=== PATIENT | female | born 1945 | race Caucasian/White ===

== ENCOUNTER 2017-03-03 16:58 | Emergency (ER) | payer MEDICARE, OTHER ==
[2017-03-03 17:14] VITALS: RESP 16; TEMP 98.9; BMI 23.3
[2017-03-03 18:49] LABS: BASO # 0.02 K/mm3 (0.0-2.0); BASO % 0.4 % (0.0-3.0); EOS # 0.1 (0.0-0.7); EOS % 1.6 % (1.5-5.0); GRAN # 2.25 (1.4-6.5); GRAN % 43.5 % (50.0-68.0); HEMOGLOBIN 12.3 gm/dL (12.0-16.0); LYMPH # 2.4 (1.2-3.4); LYMPH % 46.7 % (22.0-35.0); MEAN CELL VOLUME 76.9 fL (80.0-105.0); MEAN CORPUSCULAR HEMOGLOBIN 25.6 pg (25.0-35.0); MEAN CORPUSCULAR HGB CONC 33.3 g/dl (31.0-37.0); MEAN PLATELET VOLUME 10.9 fl (7.0-11.0); MONO # 0.4 (0.1-0.6); MONO % 7.8 % (1.0-6.0); PLATELET COUNT 243 10^3/uL (120.0-450.0); RED CELL DISTRIBUTION WIDTH 13.8 % (11.5-14.5); WHITE BLOOD COUNT 5.2 10^3/ul (4.5-11.0)
[2017-03-03 19:00] LABS: ALB/GLOB RATIO 1.2 (1.1-1.8); ALT/SGPT 27 U/L (7-56); AST/SGOT 22 U/L (15-39); BLOOD UREA NITROGEN 17 mg/dL (7-21); GFR AFRICAN-AMERICAN > 60; GFR NON-AFRICAN AMERICAN > 60
--- NOTE | 2017-03-03 19:17 | ED PDOC ---
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 Patient states she has pain and swelling at the MCP of the fifth finger. Patient denies any trauma or injury. Patient states she does use a walker for ambulation at home and occasionally will use a cane in the right hand. Patient states she takes Lyrica for pain. She denies chest pain or shortness of breath. Denies numbness weakness or tingling in the extremity. Patient denies any recent trauma or injury patient states that she is able to flex the fingers, but the pain is severe. denies cp or sob. denies forearm pain. pt states pain is only along the palm of the had at the 5th finger. taking lyrica for pain without improvement. (Nohemi Bledsoe) Past Medical History - Provider Review Nursing Documentation Reviewed: Yes - Travel History Have you recently traveled outside [place] w/in the past 3 mons?: No - Infectious Disease Hx of Infectious Diseases: None - Tetanus Immunization Tetanus Immunization: Unknown - Reproductive Menopause: Yes - Cardiac Hx Cardiac Disorders: Yes Hx Hypertension: Yes - Pulmonary Hx Respiratory Disorders: No - Neurological HX Cerebrovascular Accident: Yes (LEFT SIDED WEAKNESS 1996) - HEENT Hx HEENT Disorder: (WEARS RX GLASSES.LID LIFT) - Endocrine/Metabolic Hx Diabetes Mellitus Type 1: Yes - Hematological/Oncological Hx Blood Disorders: No - Musculoskeletal/Rheumatological Hx Arthritis: Yes - Psychiatric Hx Psychophysiologic Disorder: No Hx Anxiety: No Hx Bipolar Disorder: No Hx Depression: No Hx Emotional Abuse: No Hx Hallucinations: No Hx Panic Disorder: No Hx Post Traumatic Stress Disorder: No Hx Psychosis: No Hx Physical Abuse: No Hx Schizophrenia: No Hx Sexual Abuse: No Hx Substance Use: No - Surgical History Hx Appendectomy: Yes Hx Hysterectomy: Yes - Anesthesia Hx Anesthesia: Yes Hx Anesthesia Reactions: No Hx Malignant Hyperthermia: No - Suicidal Assessment Feels Threatened In Home Enviroment: No <Nohemi Bledsoe - Last Filed: 03/04/17 14:29> Family/Social History - Physician Review Nursing Documentation Reviewed: Yes Family/Social History: Unknown Family HX Smoking Status: Never Smoked Hx Alcohol Use: No Hx Substance Use: No Hx Substance Use Treatment: No <Nohemi Bledsoe - Last Filed: 03/04/17 14:29> Allergies/Home Meds <Rajat Soto - Last Filed: 03/03/17 20:18> <Nohemi Bledsoe - Last Filed: 03/04/17 14:29> Allergies/Adverse Reactions: Allergies No Known Allergies Allergy (Verified 03/03/17 17:14) Home Medications: Home Meds Medication Instructions Recorded Confirmed Clopidogrel [Plavix] 75 mg PO DAILY 12/11/11 04/29/16 Metformin HCl [Glucophage Xr] 1,000 mg PO BID 04/01/16 04/29/16 Alendronate Sodium [Binosto] 70 mg PO QWK 04/28/16 04/28/16 Atorvastatin Calcium 10 mg PO DAILY 04/28/16 04/29/16 Insulin Detemir [Levemir] 40 unit SC DAILY 04/28/16 04/28/16 Linagliptin [Tradjenta] 5 mg PO DAILY 04/28/16 04/28/16 Lisinopril [Zestril] 2.5 mg PO DAILY 04/28/16 04/28/16 Pregabalin [Lyrica] 75 mg PO BID 04/28/16 04/29/16 Review of Systems - Review of Systems Constitutional: absent: Fatigue, Fevers Respiratory: absent: SOB, Cough Cardiovascular: absent: Chest Pain, Palpitations Gastrointestinal: absent: Abdominal Pain, Diarrhea, Nausea, Vomiting Musculoskeletal: Arthralgias. absent: Back Pain, Neck Pain Skin: absent: Rash, Pruritis Neurological: absent: Headache, Dizziness Psychiatric: absent: Anxiety, Depression <Nohemi Bledsoe - Last Filed: 03/04/17 14:29> Physical Exam Vital Signs Reviewed: Yes Temperature: Afebrile Blood Pressure: Hypertensive Pulse: Regular Respiratory Rate: Normal Appearance: Positive for: Well-Appearing, Non-Toxic, Comfortable Pain Distress: None Mental Status: Positive for: Alert and Oriented X 3 - Systems Exam Head: Present: Atraumatic Mouth: Present: Moist Mucous Membranes Neck: Present: Normal Range of Motion Respiratory/Chest: Present: Clear to Auscultation, Good Air Exchange. No: Respiratory Distress, Accessory Muscle Use Cardiovascular: Present: Regular Rate and Rhythm Abdomen: No: Tenderness Upper Extremity: Present: Normal ROM, NORMAL PULSES, Tenderness (right hand; + minimal swelling along palmar aspect of hand over the 5th MCP; minimal edema, full rom of hand, finger with pain. no warmth. no erythema. ), Swelling, Neurovascularly Intact, Capillary Refill < 2s. No: Erythema, Deformity Neurological: Present: GCS=15 Skin: Present: Warm, Dry, Normal Color. No: Rashes Psychiatric: Present: Alert, Oriented x 3 <Nohemi Bledsoe T - Last Filed: 03/04/17 14:29> Vital Signs Temp Pulse Resp BP Pulse Ox 03/03/17 21:35 53 L 16 169/80 H 96 03/03/17 21:17 181/83 H 03/03/17 21:06 181/83 H 03/03/17 19:52 55 L 16 186/80 H 97 03/03/17 17:11 98.9 F 58 L 16 198/81 H 97 Medical Decision Making <Rajat Soto - Last Filed: 03/03/17 20:18> <Nohemi Bledsoe - Last Filed: 03/04/17 14:29> ED Course and Treatment: 03/03/17 19:29 71-year-old diabetic female with right hand pain 4 days Tramadol by mouth CBC within normal limits CMP glucose 401 Normal saline 500 mL given IV Regular insulin 6 units subcutaneous given X-rays of the right hand: No fracture or foreign body Patient reassessment: Patient nontoxic well-appearing no distress. I discussed the results and depth of the patient and patients son. I advised follow-up with the primary care physician within the next 2 days. Pt advised immediate return if symptoms worsen or persist or if new concerning symptoms develop. advised patient take antibiotics as prescribed. pt was advised to f/u with email specialist/ pmd regarding elevated bP. fingerstick;199 norvasc 2.5mg po given. although there is minimal erythema, and minimal swelling; i will cover the patient with keflex for possibility of developing cellulitis. stressed IMMEDIATE return if symptoms worsen. switching clerk aware reviewed; no record of narcotic use for this patient. Patient verbalizes understanding of discharge instructions and need for immediate followup. Patient was seen and evaluated by Dr. Soto. impression; hand pain, hyperglycemia, hypertension Keflex 1 capsule 4 times daily 7 days Tramdol; 1 tablet every 6 hours as needed for moderate to severe pain follow up with the primary care physician within the next 2 days. follow up with orthopedist within the next 2 days. return immediately if signs of infection develop; High fevers, increasing pain, redness, swelling or if any other concerning symptoms develop. (Nohemi Bledsoe) - Lab Interpretations Lab Results: 03/03/17 18:20 03/03/17 18:20 Lab Results 03/03/17 18:20: WBC 5.2 D, RBC 4.80, Hgb 12.3, Hct 36.9, MCV 76.9 L, MCH 25.6, MCHC 33.3, RDW 13.8, Plt Count 243, MPV 10.9, Gran % 43.5 L, Lymph % (Auto) 46.7 H, Atkinson % (Auto) 7.8 H, Eos % (Auto) 1.6, Baso % (Auto) 0.4, Gran # 2.25, Lymph # 2.4, Atkinson # 0.4, Eos # 0.1, Baso # 0.02 03/03/17 18:20: Sodium 135, Potassium 4.5, Chloride 97 L, Carbon Dioxide 28, Anion Gap 15, BUN 17, Creatinine 0.7, Est GFR ( Amer) > 60, Est GFR (Non- Af Amer) > 60, Random Glucose 401 H* D, Calcium 9.0, Total Bilirubin 0.5, AST 22 , ALT 27, Alkaline Phosphatase 124, Total Protein 7.4, Albumin 4.0, Globulin 3.4 , Albumin/Globulin Ratio 1.2 - RAD Interpretation Radiology Orders: 03/03/17 17:55 HAND RIGHT 3 VIEWS [RAD] Stat - Medication Orders Current Medication Orders: Discontinued Medications Amlodipine Besylate (Norvasc) 2.5 mg PO STAT STA Stop: 03/03/17 21:09 Last Admin: 03/03/17 21:17 Dose: 2.5 mg Cephalexin Monohydrate (Keflex) 500 mg PO STAT STA PRN Reason: Protocol Stop: 03/03/17 21:09 Last Admin: 03/03/17 21:17 Dose: 500 mg Sodium Chloride (Sodium Chloride 0.9%) 500 mls @ 999 mls/hr IV .Q31M STA Stop: 03/03/17 19:49 Last Admin: 03/03/17 19:24 Dose: 999 mls/hr Insulin Human Regular (Humulin R) 6 units SC STAT STA Stop: 03/03/17 19:20 Last Admin: 03/03/17 19:29 Dose: 6 units Tramadol HCl (Ultram) 25 mg PO STAT STA Stop: 03/03/17 18:53 Last Admin: 03/03/17 19:30 Dose: 25 mg - PA / [employer]ER [employer]ER / Resident Statement / has reviewed & agrees with the documentation as recorded. / has examined the patient and agrees with the treatment plan. <Rajat Soto - Last Filed: 03/03/17 20:18> Disposition/Present on Arrival <Rajat Stoo - Last Filed: 03/03/17 20:18> - Present on Arrival Any Indicators Present on Arrival: No History of DVT/PE: No History of Uncontrolled Diabetes: No Urinary Catheter: No History of Decub. Ulcer: No History Surgical Site Infection Following: None - Disposition Have Diagnosis and Disposition been Completed?: Yes Disposition Time: 21:16 Patient Plan: Discharge <Nohemi Bledsoe - Last Filed: 03/04/17 14:29> - Disposition Diagnosis: Hypertension, Right hand pain, Hyperglycemia Disposition: HOME/ ROUTINE Condition: GOOD Discharge Instructions (ExitCare): Cellulitis (ED), Hypertension (ED), Arthralgia (ED), Diabetic Hyperglycemia (ED) Additional Instructions: Keflex 1 capsule 4 times daily 7 days Tramdol; 1 tablet every 6 hours as needed for moderate to severe pain follow up with the primary care physician within the next 2 days. follow up with orthopedist within the next 2 days. return immediately if signs of infection develop; High fevers, increasing pain, redness, swelling or if any other concerning symptoms develop. Prescriptions: Cephalexin [Keflex] 500 mg PO QID #28 capsule traMADol [Ultram] 50 mg PO Q6H #6 tab Referrals: Darnell Mathis [Primary Care Provider] - Follow up with primary Mati Abarca MD [Staff Provider] - Follow up with primary Bishop Kern MD [Staff Provider] - Follow up with primary Reji Beckman MD [Staff Provider] - Follow up with primary Francois Rios MD [Staff Provider] - Follow up with primary Forms: [employer] (Kiswahili)
[2017-03-03] MEDS ORDERED: Insulin Regular 1 UNITS/0.01 ML ML SC STA (19:19)
[2017-03-03] MEDS ORDERED: Sodium Chloride 0.9% 500 ML IV STA (19:19)
[2017-03-03 22:55] VITALS: BP 169/80; PULSE 53; O2SAT 96
--- NOTE | 2017-03-04 11:40 | RAD ---
PROCEDURE: Right Hand Radiographs. HISTORY: right hand pain/swelling greatest over 5th mcp COMPARISON: None. FINDINGS: BONES: No acute fracture is seen or dislocation. Joint space narrowing throughout the interphalangeal suggest osteoarthritis including at the thumb as well as of the 1st metacarpophalangeal joint. Diffuse osteopenia suggests osteoporosis. JOINTS: Degenerative joint changes throughout the phalanges as discussed above. SOFT TISSUES: Normal. OTHER FINDINGS: None. IMPRESSION: No acute fracture or dislocation. Degenerative joint changes seen as well as osteopenia which suggests osteoporosis.
== END 2017-03-03 21:40 | disposition home or self-care (01) ==
LOC: ED 16:58
DX: I10 Essential (primary) hypertension (principal); E11.65 Type 2 diabetes mellitus with hyperglycemia; M79.641 Pain in right hand; Z86.73 Personal history of transient ischemic attack (TIA), and cerebral infarction without residual deficits
CPT/HCPCS: 73130; 80053; 85025; 87040; 96372; 99284; J7040

== ENCOUNTER 2017-07-25 10:25 | Emergency (ER) | payer MEDICARE, OTHER ==
[2017-07-25 10:26] VITALS: BMI 23.3
== END 2017-07-25 10:46 | disposition left against medical advice (07) ==
LOC: ED 10:25
DX: Z02.89 Encounter for other administrative examinations (principal); M25.512 Pain in left shoulder

== ENCOUNTER 2017-07-28 07:13 | Observation (INO) | payer MEDICARE, OTHER ==
[2017-07-28] MEDS ORDERED: Morphine 4 mg/ml ISec IVP STA (07:41)
[2017-07-28] MEDS: Sodium Chloride 0.9% 1,000 ML IV SCH ×4 (07:55→20:23)
[2017-07-28 07:56] LABS: BASO # 0.02 K/mm3 (0.0-2.0); BASO % 0.3 % (0.0-3.0); EOS % 0.6 % (1.5-5.0); GRAN # 3.48 (1.4-6.5); GRAN % 56.4 % (50.0-68.0); LYMPH # 2.2 (1.2-3.4); LYMPH % 34.8 % (22.0-35.0); MEAN CELL VOLUME 79.3 fl (80.0-105.0); MEAN CORPUSCULAR HEMOGLOBIN 25.4 pg (25.0-35.0); MEAN CORPUSCULAR HGB CONC 32.1 g/dl (31.0-37.0); MEAN PLATELET VOLUME 11.6 fl (7.0-11.0); MONO # 0.5 (0.1-0.6); MONO % 7.9 % (1.0-6.0); RED CELL DISTRIBUTION WIDTH 13.2 % (11.5-14.5); WHITE BLOOD COUNT 6.2 10^3/ul (4.5-11.0)
--- NOTE | 2017-07-28 08:02 | ED PDOC ---
Arrival/HPI - General Chief Complaint: Chest Pain Time Seen by Provider: 07/28/17 07:41 Historian: Patient EM Caveat: Language Barrier (pt speaks montserratian, son is translating) - History of Present Illness Narrative History of Present Illness (Text): 07/28/17 07:30 Kasey Wellington is a 72 year old female who presents to the emergency department complaining of ~ 1 week duration of near constant left shoulder pain that radiates down her left arm. Patient notes that she experiences some associated dizziness and chest discomfort, prompting her to come to the emergency department because she was unable to tolerate the pain. Patient confirms that she has never experienced this pain before and rates her pain as a 7/10. Patient states that she [facility] the [facility] a few days (4) ago but left because she was waiting too long for the doctor. Patient then says she went to [facility] ED and was told/diagnosed she has muscle pain. Patient reportedly states that she has also been seen at a satellite clinic where she was discharged for shoulder pain. 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 Patient denies any fever, chills, sweats, shortness of breath, palpitations, abdominal pain, nausea, vomiting, urinary symptoms, numbness, tingling, or any other complaint at this time. pt is here for further eval pt denied fall/trauma/sick contact, no travel PMD: Dr. Mathis 07/28/17 08:59 Time/Duration: < week Symptom Onset: Gradual Symptom Course: Unchanged Severity Level: 7, Moderate Activities at Onset: Light Context: Home Past Medical History - Provider Review Nursing Documentation Reviewed: Yes - Travel History Have you recently traveled outside [place] w/in the past 3 mons?: No - Infectious Disease Hx of Infectious Diseases: None - Tetanus Immunization Tetanus Immunization: Unknown - Reproductive Menopause: Yes - Cardiac Hx Cardiac Disorders: Yes Hx Hypertension: Yes - Pulmonary Hx Respiratory Disorders: No - Neurological HX Cerebrovascular Accident: Yes (LEFT SIDED WEAKNESS 1996) - HEENT Hx HEENT Disorder: (WEARS RX GLASSES.LID LIFT) - Endocrine/Metabolic Hx Diabetes Mellitus Type 1: Yes - Hematological/Oncological Hx Blood Disorders: No - Musculoskeletal/Rheumatological Hx Arthritis: Yes - Psychiatric Hx Psychophysiologic Disorder: No Hx Anxiety: No Hx Bipolar Disorder: No Hx Depression: No Hx Emotional Abuse: No Hx Hallucinations: No Hx Panic Disorder: No Hx Post Traumatic Stress Disorder: No Hx Psychosis: No Hx Physical Abuse: No Hx Schizophrenia: No Hx Sexual Abuse: No Hx Substance Use: No - Surgical History Hx Appendectomy: Yes Hx Hysterectomy: Yes - Anesthesia Hx Anesthesia: Yes Hx Anesthesia Reactions: No Hx Malignant Hyperthermia: No - Suicidal Assessment Feels Threatened In Home Enviroment: No Family/Social History - Physician Review Nursing Documentation Reviewed: Yes Family/Social History: No Known Family HX Smoking Status: Never Smoked Hx Alcohol Use: No Hx Substance Use: No Hx Substance Use Treatment: No Allergies/Home Meds Allergies/Adverse Reactions: Allergies No Known Allergies Allergy (Verified 07/28/17 07:19) Home Medications: Home Meds Medication Instructions Recorded Confirmed Clopidogrel [Plavix] 75 mg PO DAILY 12/11/11 07/28/17 Metformin HCl [Glucophage Xr] 1,000 mg PO BID 04/01/16 07/28/17 Alendronate Sodium [Binosto] 70 mg PO QWK 04/28/16 07/28/17 Atorvastatin Calcium 10 mg PO DAILY 04/28/16 07/28/17 Insulin Detemir [Levemir] 40 unit SC DAILY 04/28/16 07/28/17 Linagliptin [Tradjenta] 5 mg PO DAILY 04/28/16 07/28/17 Lisinopril [Zestril] 2.5 mg PO DAILY 04/28/16 07/28/17 Pregabalin [Lyrica] 75 mg PO BID 04/28/16 07/28/17 Review of Systems - Physician Review All systems were reviewed & negative as marked: Yes - Review of Systems Constitutional: absent: Fevers, Night Sweats Eyes: absent: Vision Changes ENT: absent: Hearing Changes Respiratory: absent: SOB, Cough Cardiovascular: Chest Pain (some chest discomfort) Gastrointestinal: absent: Abdominal Pain Genitourinary Female: absent: Dysuria, Frequency Musculoskeletal: Other (left shoulder pain that radiates down arm). absent: Back Pain, Neck Pain Skin: absent: Rash, Pruritis Neurological: absent: Headache, Dizziness Endocrine: absent: Diaphoresis Hemo/Lymphatic: absent: Adenopathy Psychiatric: absent: Anxiety, Depression Physical Exam Vital Signs Reviewed: Yes Vital Signs Temp Pulse Resp BP Pulse Ox 07/28/17 09:14 74 18 157/74 H 98 12/23/17 07:28 98.2 F 62 18 182/90 H 98 07/28/17 07:17 62 20 182/90 H 97 Temperature: Afebrile Blood Pressure: Other (elevated BP) Pulse: Regular Respiratory Rate: Normal Appearance: Positive for: Well-Appearing, Non-Toxic, Other (uncomfortable, resting in bed, alert/awake, cooperative, + mild distress due to pain to left side during exam) Pain Distress: Mild Mental Status: Positive for: Alert and Oriented X 3 Finger Stick Blood Glucose: 403 - Systems Exam Head: Present: Atraumatic, Normocephalic Pupils: Present: PERRL, Other (visual field intact b/l, no photophobia) Extroacular Muscles: Present: EOMI Conjunctiva: Present: Normal Ears: Present: Normal Mouth: Present: Moist Mucous Membranes, Other (uvula/tongue are midline, no exudate/lesions, no drooling/stridor; intact dentitions) Pharnyx: Present: Normal. No: ERYTHEMA, EXUDATE Neck: Present: Normal Range of Motion, Trachea Midline. No: MIDLINE TENDERNESS Respiratory/Chest: Present: Clear to Auscultation, Good Air Exchange. No: Respiratory Distress, Accessory Muscle Use Cardiovascular: Present: Regular Rate and Rhythm, Normal S1, S2. No: Murmurs Abdomen: Present: Normal Bowel Sounds, Other (well nourished female, no focal tenderness, no masses/rebound/guarding/rigidity, no kirby's sign, no mcburney' s point tenderness). No: Tenderness, Distention, Peritoneal Signs Back: Present: Normal Inspection. No: Midline Tenderness Upper Extremity: Present: Normal Inspection, Normal ROM, NORMAL PULSES, Other ( + reproducible left mid/upper shoulder/trapezius region tenderness, no gross deformities noted, neurovasc intact b/l). No: Cyanosis, Edema Lower Extremity: Present: Normal Inspection, NORMAL PULSES, Normal ROM, Capillary Refill < 2 s. No: Edema, Kahlil's Sign Neurological: Present: GCS=15, CN II-XII Intact, Speech Normal Skin: Present: Warm, Dry, Normal Color, Other (cap refill < 1 sec, no ulcerations, no petechiae, no rashes, no lesions noted). No: Rashes Psychiatric: Present: Alert, Oriented x 3, Normal Insight, Normal Concentration Medical Decision Making ED Course and Treatment: 07/28/17 07:30 Impression: 72 year old female complaining of left shoulder pain that radiates down arm with associated dizziness and some chest discomfort for about one week. Differential Diagnosis included but are not limited to: Chest Pain r/o ACS vs. musculoskeletal pathology. Unlikely to be pancreatitis, PE, or pneumonia. Will continue to monitor. Plan: -- Chest X-ray -- Urinalysis -- Labs -- Morphine, Aspirin, and IV fluids -- Reassess and disposition Prior Visits: Notes and results from previous visits were reviewed. Patient was last seen in the emergency department on 07/25/17 for left shoulder pain, but patient eloped before being seen. Progress Notes: 07/28/17 08:40 Dr. Wilson made aware of patient's emergent complaints, diagnostic finds and Emergency department managment. Is agreeable with emergency department admission /observation placement. Would like patient to be placed in full telemetry and to put in consult for Dr. Man. 07/28/17 09:04 pt states her pain is slightly improved to left shoulder pt denied chest pain currently pt/family are made aware of pt's medical results agrees with admission/observation Re-evaluation Time: 09:00 Reassessment Condition: Improved - Lab Interpretations Lab Results: 07/28/17 07:20 07/28/17 07:20 Lab Results 07/28/17 07:20: Lipase 43 07/28/17 07:20: Sodium 135, Potassium 4.4, Chloride 96 L, Carbon Dioxide 28, Anion Gap 15, BUN 14, Creatinine 0.6 L, Est GFR ( Amer) > 60, Est GFR ( Non-Af Amer) > 60, Random Glucose 417 H*, Calcium 9.4, Magnesium 1.9, Total Bilirubin 0.7, AST 20, ALT 24, Alkaline Phosphatase 145 H, Lactate Dehydrogenase 571, Total Creatine Kinase 132, Troponin I < 0.01, Total Protein 8.1, Albumin 4.3, Globulin 3.8, Albumin/Globulin Ratio 1.1 07/28/17 07:20: WBC 6.2, RBC 4.92, Hgb 12.5, Hct 39.0, MCV 79.3 L, MCH 25.4, MCHC 32.1, RDW 13.2, Plt Count 281, MPV 11.6 H, Gran % 56.4, Lymph % (Auto) 34.8 , [place] % (Auto) 7.9 H, Eos % (Auto) 0.6 L, Baso % (Auto) 0.3, Gran # 3.48, Lymph # 2.2, [place] # 0.5, Eos # 0.0, Baso # 0.02 I have reviewed the lab results: Yes (elevated FS) Interpretation: Abnormal lab values - RAD Interpretation Narrative RAD Interpretations (Text): 07/28/17 11:52 atelectasis, otherwise no large effusion, no masses; mild cardiomeagly, as read by me Radiology Orders: 07/28/17 07:41 CHEST TWO VIEWS (PA/LAT) [RAD] Stat Membership Solicitor: ED Physician - EKG Interpretation EKG Interpretation (Text): 07/28/17 09:06 NSR at 65 bpm, normal axis, no ectopy, inverted T in leads III, V1-2, no st changes, BORDERLINE EKG; unchanged compare with old ekg 11/201607/28/17 11:54 Interpreted by ED Physician: Yes Type: 12 lead EKG Comparison: Similar to previous EKG - Medication Orders Current Medication Orders: Amlodipine Besylate (Norvasc) 2.5 mg PO DAILY [facility] Last Admin: 07/28/17 10:52 Dose: 2.5 mg [facility] Blood Pressure Document 07/28/17 10:52 KMS (Rec: 07/28/17 10:52 KMS [place] [id number]) Blood Pressure Blood Pressure (100/60-150/90) 133/65 Atenolol (Tenormin) 25 mg PO DAILY [facility] Last Admin: 07/28/17 10:51 Dose: 25 mg MAR Pulse and Blood Pressure Document 07/28/17 10:51 KMS (Rec: 07/28/17 10:52 KMS [place] [id number]) Pulse Pulse Rate (60-90) 61 Blood Pressure Blood Pressure (100/60-150/90) 133/65 Atorvastatin Calcium (Lipitor) 10 mg PO HS [facility] Clopidogrel Bisulfate (Plavix) 75 mg PO DAILY [facility] Last Admin: 07/28/17 10:51 Dose: 75 mg Famotidine (Pepcid) 20 mg PO BID [facility] Sodium Chloride (Sodium Chloride 0.9%) 1,000 mls @ 100 mls/hr IV .Q10H [place] Last Admin: 07/28/17 10:58 Dose: 100 mls/hr Comments: israel atkinson ba eMAR Start Stop Document 07/28/17 10:58 KMS (Rec: 07/28/17 10:59 KMS [place] [id number]) Intravenous Solution Start Date 07/28/17 Start Time 10:59 Ibuprofen (Motrin Tab) 400 mg PO Q6H PRN PRN Reason: Pain, moderate (4-7) Insulin Detemir (Levemir) 40 unit SC HS [place] Insulin Human Regular (Humulin R Med) 0 units SC ACHS [place] PRN Reason: Protocol Last Admin: 07/28/17 11:16 Dose: 3 units MAR Blood Glucose Document 07/28/17 11:16 KMS (Rec: 07/28/17 11:16 KMS [place] [id number]) Blood Glucose Finger Stick Blood Glucose (70-120) 226 Subcutaneous Administrations Document 07/28/17 11:16 KMS (Rec: 07/28/17 11:16 KMS [place] [id number]) Injection Site MAR Injection Site Right Arm Charges for Administration # of Subcutaneous Administrations 1 Lisinopril (Zestril) 2.5 mg PO DAILY [place] Pregabalin (Lyrica) 75 mg PO BID [place] Tramadol HCl (Ultram) 50 mg PO Q6H PRN PRN Reason: Pain, severe (8-10) Discontinued Medications Aspirin (Aspirin) 325 mg PO STAT STA Stop: 07/28/17 07:42 Last Admin: 07/28/17 07:55 Dose: 325 mg Sodium Chloride (Sodium Chloride 0.9%) 1,000 mls @ 999 mls/hr IV .Q1H1M STA Stop: 07/28/17 09:32 Last Admin: 07/28/17 09:15 Dose: 999 mls/hr eMAR Start Stop Document 07/28/17 09:15 EWO (Rec: 07/28/17 09:16 [id number] Intravenous Solution Start Date 07/28/17 Start Time 09:15 End Date 07/28/17 End time 10:15 Total Infusion Time 60 Insulin Detemir (Levemir) 40 unit SC DAILY [facility] Insulin Human Regular (Humulin R) 6 units SC ONCE ONE Stop: 07/28/17 08:33 Last Admin: 07/28/17 09:13 Dose: 6 units MAR Blood Glucose Document 07/28/17 09:13 EWO (Rec: 07/28/17 09:14 EWO [id number] Blood Glucose Finger Stick Blood Glucose (70-120) 403 Subcutaneous Administrations Document 07/28/17 09:13 EWO (Rec: 07/28/17 09:14 EWO [id number][place] Injection Site MAR Injection Site Left Arm Charges for Administration # of Subcutaneous Administrations 1 Morphine Sulfate (Morphine) 4 mg IVP STAT STA Stop: 07/28/17 07:42 Last Admin: 07/28/17 07:55 Dose: 4 mg MAR Pain Assessment Document 07/28/17 07:55 EWO (Rec: 07/28/17 07:56 [id number] Pain Reassessment Is this a pain reassessment? No Sleep Is patient sleeping during reassessment? No Presence of Pain Presence of Pain Yes Pain Scale Used Pain Scale Used Numeric Location Left, Right or Bilateral Left Pain Location Body Site Neck Shoulder Description Description Constant Intensity of Pain at present 7 IVP Administration Document 07/28/17 07:55 EWO (Rec: 07/28/17 07:56 [facility]-[id number]) Charges for Administration # of IVP Administrations 1 Re-Assess: DORIS Pain Assessment Document 07/28/17 08:55 KMS (Rec: 07/28/17 11:18 KMS [id number]) Pain Reassessment Is this a pain reassessment? Yes Presence of Pain Presence of Pain No Nitroglycerin (Nitro-Bid 2% Oint) 0.5 ea TOP STAT STA Stop: 07/28/17 08:41 Last Admin: 07/28/17 09:14 Dose: 0.5 ea - Scribe Statement The provider has reviewed the documentation as recorded by the Ramesh Hope Provider Scribe Attestation: All medical record entries made by the Scribe were at my direction and personally dictated by me. I have reviewed the chart and agree that the record accurately reflects my personal performance of the history, physical exam, medical decision making, and the department course for this patient. I have also personally directed, reviewed, and agree with the discharge instructions and disposition. Disposition/Present on Arrival - Present on Arrival Any Indicators Present on Arrival: No History of DVT/PE: No History of Uncontrolled Diabetes: No Urinary Catheter: No History of Decub. Ulcer: No History Surgical Site Infection Following: None - Disposition Have Diagnosis and Disposition been Completed?: Yes Diagnosis: Chest pain, Acute hyperglycemia, Shoulder pain, left Disposition: HOSPITALIZED Disposition Time: 09:15 Patient Plan: Admission, Observation Condition: STABLE
[2017-07-28 08:23] LABS: ALB/GLOB RATIO 1.1 (1.1-1.8); ALKALINE PHOSPHATASE 145 U/L (38-126); ALT/SGPT 24 U/L (7-56); AST/SGOT 20 U/L (14-36); BILIRUBIN,TOTAL 0.7 mg/dL (0.2-1.3); BLOOD UREA NITROGEN 14 mg/dL (7-21); CALCIUM 9.4 mg/dL (8.4-10.5); CARBON DIOXIDE 28 mmol/L (21-33); CHLORIDE 96 mmol/L (98-107); GFR AFRICAN-AMERICAN > 60; GLUCOSE,RANDOM 417 mg/dL (70-110); MAGNESIUM 1.9 mg/dL (1.7-2.2); POTASSIUM 4.4 mmol/L (3.6-5.0); SODIUM 135 mmol/L (132-148); TOTAL PROTEIN 8.1 g/dL (5.8-8.3); TROPONIN I < 0.01 ng/mL
[2017-07-28] MEDS ORDERED: Insulin Regular 1 UNITS/0.01 ML ML SC ONE (08:32)
[2017-07-28] MEDS ORDERED: Sodium Chloride 0.9% 1,000 ML IV STA (08:32)
[2017-07-28] MEDS ORDERED: Nitroglycerin 2% Ointment Foilpak UD TOP STA (08:40)
[2017-07-28 09:30] LABS: VENOUS BLOOD GAS BASE EXCESS 2.6 mmol/L (0.0-2.0); VENOUS BLOOD PH 7.34 (7.32-7.43)
--- NOTE | 2017-07-28 09:57 | CP.PCM.HP ---
<Raquel Acevedo - Last Filed: 07/28/17 16:49> History of Present Illness - History of Present Illness History of Present Illness: PGY-2 h&p for hospitalist service 72 yo female with PMH of diabetes, HTN, cva with left sided weakness presents with left shoulder pain. Patient states that it started about 1 week ago and is located in her left neck and shoulder and radiated done her arm and occasionally to the upper left chest and back. She denies previous episode or trauma. She states that the pain is worse with movement. A few days prior she went to another ER and was diagnosed with muscle pain and given tramadol. However she did not take the medication. She also reports a recent episode of dizziness, stating that when she stood up she felt the room closing in on her. She states it lasted a few minutes and resolved, denies loss of consciousness. She also reports diabetic neuropathy in her feet. Patient states that sugars have not been controlled, and have been in the 300s. She denies fever, chills, abd pain, n/v, dysuria. PMH: HTN, Diabetes, diabetic neuropathy, CVA 1996, TIA 2013 Psh: appendectomy, cholecystectomy, hysterectomy allergy: NKDA social history: denies smoking, alcohol use and illicit dugs family history: unknown cancer Present on Admission - Present on Admission Any Indicators Present on Admission: Yes History of Uncontrolled Diabetes: Yes Review of Systems - Constitutional Constitutional: Weakness (h/o left sided due to cvs). absent: Chills, Fever, Headache - EENT Eyes: absent: Change in Vision Nose/Mouth/Throat: absent: Nasal Congestion, Sore Throat - Cardiovascular Cardiovascular: Chest Pain. absent: Diaphoresis, Dyspnea, Palpitations - Respiratory Respiratory: absent: Cough, Dyspnea - Gastrointestinal Gastrointestinal: absent: Abdominal Pain, Constipation, Cramping, Diarrhea, Nausea, Vomiting - Genitourinary Genitourinary: absent: Difficulty Urinating, Dysuria, Flank Pain - Musculoskeletal Musculoskeletal: Arthralgias, Numbness, Tingling - Integumentary Integumentary: absent: Pruritus, Rash, Skin Ulcer, Sores, Striae, Wounds - Hematologic/Lymphatic Hematologic: absent: Easy Bleeding, Easy Bruising Past Patient History - Infectious Disease Hx of Infectious Diseases: None - Tetanus Immunizations Tetanus Immunization: Unknown - Past Social History Smoking Status: Never Smoked - CARDIAC Hx Cardiac Disorders: Yes Hx Hypertension: Yes - PULMONARY Hx Respiratory Disorders: No - NEUROLOGICAL HX Cerebrovascular Accident: Yes (LEFT SIDED WEAKNESS 1996) - HEENT Hx HEENT Problems: (WEARS RX GLASSES.LID LIFT) - ENDOCRINE/METABOLIC Hx Diabetes Mellitus Type 1: Yes - HEMATOLOGICAL/ONCOLOGICAL Hx Blood Disorders: No - MUSCULOSKELETAL/RHEUMATOLOGICAL Hx Arthritis: Yes - PSYCHIATRIC Hx Psychophysiologic Disorder: No Hx Anxiety: No Hx Bipolar Disorder: No Hx Depression: No Hx Emotional Abuse: No Hx Hallucinations: No Hx Panic Symptoms: No Hx Post Traumatic Stress Disorder: No Hx Psychosis: No Hx Physical Abuse: No Hx Schizophrenia: No Hx Sexual Abuse: No Hx Substance Use: No - SURGICAL HISTORY Hx Appendectomy: Yes Hx Hysterectomy: Yes - ANESTHESIA Hx Anesthesia: Yes Hx Anesthesia Reactions: No Hx Malignant Hyperthermia: No Meds Allergies/Adverse Reactions: Allergies Allergy/AdvReac Type Severity Reaction Status Date / Time No Known Allergies Allergy Verified 07/28/17 14:38 Physical Exam - Constitutional Appears: No Acute Distress - Head Exam Head Exam: ATRAUMATIC, NORMAL INSPECTION, NORMOCEPHALIC - Eye Exam Eye Exam: EOMI, Normal appearance - ENT Exam ENT Exam: Mucous Membranes Moist - Respiratory Exam Respiratory Exam: Clear to Auscultation Bilateral, NORMAL BREATHING PATTERN. absent: Rhonchi, Wheezes, Respiratory Distress - Cardiovascular Exam Cardiovascular Exam: REGULAR RHYTHM, +S1, +S2. absent: Tachycardia, Systolic Murmur - GI/Abdominal Exam GI & Abdominal Exam: Normal Bowel Sounds, Soft. absent: Distended, Firm, Tenderness - Extremities Exam Additional comments: cervical and upper thoracic paravertebral tenderness, hypertonicity weakness in left sided extremity due to previous cva tenderness with passive movement of left shoulder - Back Exam Back exam: muscle spasm, paraspinal tenderness - Neurological Exam Neurological exam: Alert, CN II-XII Intact, Oriented x3 - Skin Skin Exam: Dry, Intact, Normal Color, Warm Results - Vital Signs Recent Vital Signs: Last Vital Signs Temp 98.2 F 07/28/17 07:28 Pulse 74 07/28/17 09:14 Resp 18 07/28/17 09:14 BP 157/74 H 07/28/17 09:14 Pulse Ox 98 07/28/17 09:14 - Labs Result Diagrams: 07/28/17 07:20 07/28/17 07:20 Labs: Laboratory Results - last 24 hr 12/23/17 12/23/17 09:20 09:53 pO2 34 VBG pH 7.34 VBG pCO2 55.0 VBG HCO3 29.7 H VBG O2 Sat (Calc) 68.9 H VBG Base Excess 2.6 H POC Glucose (mg/dL) 282 H Assessment & Plan - Assessment and Plan (Free Text) Assessment: 72 yo female with PMH of diabetes, HTN, cva with left sided weakness presents with left shoulder pain that radiates to chest and arm. Plan: 1. shoulder pain radiated to chest - possible atypical chest pain, rule out acs vs musculoskeletal - trend trops, negative times 2 - cxr was negative - xray if shoulder and neck - PT evaluation - cardiology consult, rec appreciated 2. near syncope - h/o orthostatic hypotension - ct head pending - orthostatic vitals 3. diabetes, uncontrolled - hold home metformin and trajenta - Continue Levemir 40 u SC HS - Insulin sliding scale - regular accuchecks - continue kerwin for neuropathy 4. HTN - increased in ED - continue home medications norvasc, lisinopril, atenolol - continue to monitor case reviewed and discussed with Dr. Menon <Cachorro Menon - Last Filed: 07/28/17 17:15> Results - Vital Signs Recent Vital Signs: Last Vital Signs Temp 97.9 F 07/28/17 14:39 Pulse 57 L 07/28/17 14:39 Resp 18 07/28/17 14:39 BP 134/72 07/28/17 14:39 Pulse Ox 99 07/28/17 10:14 - Labs Result Diagrams: 07/28/17 07:20 07/28/17 07:20 Labs: Laboratory Results - last 24 hr 07/28/17 07/28/17 07/28/17 09:20 09:53 11:01 pO2 34 VBG pH 7.34 VBG pCO2 55.0 VBG HCO3 29.7 H VBG O2 Sat (Calc) 68.9 H VBG Base Excess 2.6 H POC Glucose (mg/dL) 282 H 226 H Lactate Dehydrogenase Total Creatine Kinase Troponin I 07/28/17 07/28/17 13:00 16:25 pO2 VBG pH VBG pCO2 VBG HCO3 VBG O2 Sat (Calc) VBG Base Excess POC Glucose (mg/dL) 78 Lactate Dehydrogenase 981 H Total Creatine Kinase 109 Troponin I < 0.01 Attending/Attestation - Attestation I have personally seen and examined this patient.: Yes I have fully participated in the care of the patient.: Yes I have reviewed all pertinent clinical information: Yes Notes (Text): 07/28/17 17:06 72 year old female with past medical histor of CVA, hypertension and diabetes who presented with complaint of neck pain with radiation to left shoulder and left side of chest. Serial cardiac enzymes are ordered to rule out ACS. Shoulder and cervical xray are also ordered. Cardiology evaluation is requested. PT evaluation is requested. She is on lyrica and tramadol. Continue with home medications. She also complained of dizziness / presyncope. CT head and orthostatics are ordered. Cachorro Menon MD Hospitalist.
[2017-07-28] MEDS: Insulin Reg-MEDIUM-Coverage SC SCH ×3 (11:16→21:32)
--- NOTE | 2017-07-28 13:26 | RAD ---
HISTORY: left shoulder/chest pain COMPARISON: 11/22/2016. TECHNIQUE: Chest PA and lateral FINDINGS: LUNGS: No active pulmonary disease. PLEURA: No significant pleural effusion identified. No pneumothorax apparent. CARDIOVASCULAR: No radiographic findings to suggest acute or significant cardiovascular disease. OSSEOUS STRUCTURES: No significant abnormalities. VISUALIZED UPPER ABDOMEN: Normal. OTHER FINDINGS: None. IMPRESSION: No active disease. No significant interval change compared to the prior examination(s).
[2017-07-28 13:32] LABS: TROPONIN I < 0.01 ng/mL
[2017-07-28 14:58] VITALS: BMI 22.3
[2017-07-28] MEDS ORDERED: Influenza Vaccine 60 mcg/0.5 mL SYR (4YR UP) IM ONE (14:58)
[2017-07-28] MEDS ORDERED: Pneumococcal 23-Valent Vaccine IM ONE (14:58)
--- NOTE | 2017-07-28 17:01 | CT ---
PROCEDURE: CT HEAD WITHOUT CONTRAST. HISTORY: dizziness COMPARISON: 11/22/2016 TECHNIQUE: Axial computed tomography images were obtained through the head/brain without intravenous contrast. Coronal and sagittal reconstructed images. Radiation dose: Total exam DLP = 774.28 mGy-cm. This CT exam was performed using one or more of the following dose reduction techniques: Automated exposure control, adjustment of the mA and/or kV according to patient size, and/or use of iterative reconstruction technique. FINDINGS: HEMORRHAGE: No intracranial hemorrhage. BRAIN: No mass effect or edema. No atrophy or chronic microvascular ischemic changes. VENTRICLES: Unremarkable. No hydrocephalus. CALVARIUM: Unremarkable. PARANASAL SINUSES: Unremarkable as visualized. No significant inflammatory changes. MASTOID AIR CELLS: Unremarkable as visualized. No inflammatory changes. OTHER FINDINGS: None. IMPRESSION: No acute intracranial abnormalities. No significant findings to account for the clinical presentation. No significant interval change compared to the prior examination(s).
--- NOTE | 2017-07-28 17:02 | RAD ---
PROCEDURE: Radiographs of the Left Shoulder HISTORY: Left shoulder Pain. No history of recent/ related trauma provided COMPARISON: No prior. FINDINGS: BONES: Normal. No fracture. JOINTS: Normal. Glenohumeral and acromioclavicular joints preserved. No osteoarthritis. SOFT TISSUES: Normal. OTHER FINDINGS: None. IMPRESSION: No significant or acute findings to account for/ related to the clinical presentation.
--- NOTE | 2017-07-28 17:03 | RAD ---
PROCEDURE: Cervical Spine Radiographs. HISTORY: Pain. No history of recent/ related trauma provided COMPARISON: None. FINDINGS: BONES: Reversal of normal lordosis with mild kyphosis. DISC SPACES: Multilevel degenerative changes primarily disc space narrowing and non marginal osteophyte formation. Findings extends from C3-4-C7-T1. SOFT TISSUES: Normal. No prevertebral soft tissue swelling. OTHER FINDINGS: None. IMPRESSION: No acute findings related to/accounting for the clinical presentation.
[2017-07-28 21:11] LABS: TROPONIN I < 0.01 ng/mL
[2017-07-28] MEDS ORDERED: Insulin Detemir 100 units/ml Vial (Levemir) SC SCH (22:00)
[2017-07-29] MEDS: Sodium Chloride 0.9% 1,000 ML IV SCH ×3 (03:35→14:06)
[2017-07-29 06:22] VITALS: O2SAT 98
[2017-07-29 07:19] LABS: BASO # 0.03 K/mm3 (0.0-2.0); BASO % 0.6 % (0.0-3.0); EOS # 0.1 (0.0-0.7); EOS % 1.5 % (1.5-5.0); GRAN # 2.04 (1.4-6.5); GRAN % 43.7 % (50.0-68.0); LYMPH # 2.1 (1.2-3.4); LYMPH % 43.9 % (22.0-35.0); MEAN CELL VOLUME 79.8 fl (80.0-105.0); MEAN CORPUSCULAR HEMOGLOBIN 25.4 pg (25.0-35.0); MEAN CORPUSCULAR HGB CONC 31.8 g/dl (31.0-37.0); MEAN PLATELET VOLUME 11.2 fl (7.0-11.0); MONO # 0.5 (0.1-0.6); MONO % 10.3 % (1.0-6.0); RED CELL DISTRIBUTION WIDTH 13.4 % (11.5-14.5); WHITE BLOOD COUNT 4.7 10^3/ul (4.5-11.0)
[2017-07-29] MEDS: Insulin Reg-MEDIUM-Coverage SC SCH ×3 (07:44→16:47)
[2017-07-29 07:54] LABS: ALKALINE PHOSPHATASE 251 U/L (38-126); ALT/SGPT 70 U/L (7-56); AST/SGOT 76 U/L (14-36); BILIRUBIN,TOTAL 0.5 mg/dL (0.2-1.3); BLOOD UREA NITROGEN 9 mg/dL (7-21); CALCIUM 8.7 mg/dL (8.4-10.5); CARBON DIOXIDE 26 mmol/L (21-33); CHLORIDE 106 mmol/L (98-107); GFR AFRICAN-AMERICAN > 60; GLUCOSE,RANDOM 158 mg/dL (70-110); SODIUM 141 mmol/L (132-148); TOTAL PROTEIN 6.3 g/dL (5.8-8.3)
--- NOTE | 2017-07-29 09:46 | CARD ---
APPROVED REPORT EKG Measurement Heart [id number] <Conclusion> Normal sinus rhythm Normal ECG No change
[2017-07-29] MEDS ORDERED: Insulin Detemir 100 units/ml Vial (Levemir) SC SCH (10:00)
[2017-07-29 11:57] VITALS: BP 164/74; RESP 18; TEMP 98.1
[2017-07-29 16:08] VITALS: PULSE 61
--- NOTE | 2017-07-29 22:22 | CP.PCM.DIS ---
Provider - Provider Date of Admission: 07/28/17 08:37 Attending physician: Cachorro Menon MD Primary care physician: Darnell Mathis MD Consults: Cardio Jabarilajacki Time Spent in preparation of Discharge (in minutes): 35 Diagnosis - Discharge Diagnosis (1) Musculoskeletal chest pain Status: Acute (2) Cervical strain Status: Acute (3) Chest pain Status: Acute (4) Dizziness Status: Acute Hospital Course - Lab Results Lab Results: Most Recent Lab Values WBC 4.7 10^3/ul (4.5-11.0) D 07/29/17 06:30 RBC 4.26 10^6/uL (3.5-6.1) 07/29/17 06:30 Hgb 10.8 g/dL (12.0-16.0) L 07/29/17 06:30 Hct 34.0 % (36.0-48.0) L 07/29/17 06:30 MCV 79.8 fl (80.0-105.0) L 07/29/17 06:30 MCH 25.4 pg (25.0-35.0) 07/29/17 06:30 MCHC 31.8 g/dl (31.0-37.0) 07/29/17 06:30 RDW 13.4 % (11.5-14.5) 07/29/17 06:30 Plt Count 237 10^3/uL (120.0-450.0) 07/29/17 06:30 MPV 11.2 fl (7.0-11.0) H 07/29/17 06:30 Gran % 43.7 % (50.0-68.0) L 07/29/17 06:30 Lymph % (Auto) 43.9 % (22.0-35.0) H 07/29/17 06:30 [place] % (Auto) 10.3 % (1.0-6.0) H 07/29/17 06:30 Eos % (Auto) 1.5 % (1.5-5.0) 07/29/17 06:30 Baso % (Auto) 0.6 % (0.0-3.0) 07/29/17 06:30 Gran # 2.04 (1.4-6.5) 07/29/17 06:30 Lymph # 2.1 (1.2-3.4) 07/29/17 06:30 [place] # 0.5 (0.1-0.6) 07/29/17 06:30 Eos # 0.1 (0.0-0.7) 07/29/17 06:30 Baso # 0.03 K/mm3 (0.0-2.0) 07/29/17 06:30 pO2 34 mm/Hg (30-55) 07/28/17 09:20 VBG pH 7.34 (7.32-7.43) 07/28/17 09:20 VBG pCO2 55.0 (40-60) 07/28/17 09:20 VBG HCO3 29.7 mmol/l (21-28) H 07/28/17 09:20 VBG O2 Sat (Calc) 68.9 % (40-65) H 07/28/17 09:20 VBG Base Excess 2.6 mmol/L (0.0-2.0) H 07/28/17 09:20 Sodium 141 mmol/L (132-148) 07/29/17 06:30 Potassium 4.0 mmol/L (3.6-5.0) 07/29/17 06:30 Chloride 106 mmol/L (98-107) 07/29/17 06:30 Carbon Dioxide 26 mmol/L (21-33) 07/29/17 06:30 Anion Gap 13 (10-20) 07/29/17 06:30 BUN 9 mg/dL (7-21) 07/29/17 06:30 Creatinine 0.6 mg/dl (0.7-1.2) L 07/29/17 06:30 Est GFR ( Amer) > 60 07/29/17 06:30 Est GFR (Non-Af Amer) > 60 07/29/17 06:30 POC Glucose (mg/dL) 158 mg/dL (65-110) H 07/29/17 16:00 Random Glucose 158 mg/dL (70-110) H 07/29/17 06:30 Calcium 8.7 mg/dL (8.4-10.5) 07/29/17 06:30 Magnesium 1.9 mg/dL (1.7-2.2) 07/28/17 07:20 Total Bilirubin 0.5 mg/dL (0.2-1.3) 07/29/17 06:30 AST 76 U/L (14-36) H D 07/29/17 06:30 ALT 70 U/L (7-56) H 07/29/17 06:30 Alkaline Phosphatase 251 U/L (38-126) H D 07/29/17 06:30 Lactate Dehydrogenase 895 U/L (333-699) H 07/28/17 20:00 Total Creatine Kinase 106 U/L (35-230) 07/28/17 20:00 Troponin I < 0.01 ng/mL 07/28/17 20:00 Total Protein 6.3 g/dL (5.8-8.3) 07/29/17 06:30 Albumin 3.2 g/dL (3.0-4.8) 07/29/17 06:30 Globulin 3.1 gm/dL 07/29/17 06:30 Albumin/Globulin Ratio 1.0 (1.1-1.8) L 07/29/17 06:30 Lipase 43 U/L (23-300) 07/28/17 07:20 - Hospital Course Hospital Course: 72 yo female with PMH of diabetes, HTN, cva with left sided weakness presents with left neck/shoulder pain. Patient states that it started about 1 week ago and is located in her left neck and shoulder and radiated down to her arm and occasionally to the upper left chest and back. She denies previous episodes or trauma. She states that the pain is worse with movement. A few days prior, she went to another ER and was diagnosed with muscle pain and given tramadol. However she did not take the medication. She also reports a recent episode of dizziness, stating that when she stood up, she felt the room closing in on her. She states it lasted a few minutes and resolved, denies loss of consciousness. She also reports diabetic neuropathy in her feet. Patient states that sugars have not been controlled, and have been in the 300s. She denies fever, chills, abd pain, n/v, dysuria. Patient hemodynamically stable, EKG showed NSR, stress test done in 2016 was normal, trops neg x4. Dr Fuentes (Cardiology) was consulted, and said that she required no further testing. Today, pt reported no dizziness, cp, sob, diaphoresis, abdominal pain, n/v. PT evaluated the patient and said to discharge home. Patient discharged home on Flexeril and Motrin for left shoulder pain. 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 Menon. Discharge Exam - Additional Findings Additional findings: - Constitutional Appears: No Acute Distress - Head Exam Head Exam: ATRAUMATIC, NORMAL INSPECTION, NORMOCEPHALIC - Eye Exam Eye Exam: EOMI, Normal appearance - ENT Exam ENT Exam: Mucous Membranes Moist - Respiratory Exam Respiratory Exam: Clear to Auscultation Bilateral, NORMAL BREATHING PATTERN. absent: Rhonchi, Wheezes, Respiratory Distress - Cardiovascular Exam Cardiovascular Exam: REGULAR RHYTHM, +S1, +S2. absent: Tachycardia, Systolic Murmur - GI/Abdominal Exam GI & Abdominal Exam: Normal Bowel Sounds, Soft. absent: Distended, Firm, Tenderness - Extremities Exam Additional comments: cervical and upper thoracic paravertebral tenderness, hypertonicity weakness in left sided extremity due to previous cva tenderness with passive movement of left shoulder - Back Exam Back exam: muscle spasm, paraspinal tenderness - Neurological Exam Neurological exam: Alert, CN II-XII Intact, Oriented x3 - Skin Skin Exam: Dry, Intact, Normal Color, Warm Discharge Plan - Discharge Medications Prescriptions: Cyclobenzaprine [Cyclobenzaprine HCl] 5 mg PO Q8H 15 Days tab Ibuprofen [Advil] 400 mg PO Q6H 15 Days tablet - Follow Up Plan Condition: STABLE Disposition: HOME/ ROUTINE Patient education suggested?: Yes Instructions: Chest Pain (DC), Shoulder Pain (GEN), Chest Wall Pain (GEN), Chest Pain (GEN) Additional Instructions: -Take Flexeril and Motrin for left shoulder pain as needed. 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 - Please return to the hospital for any concerns. Referrals: Darnell Mathis [Primary Care Provider] -
--- NOTE | 2017-07-30 00:52 | CON ---
DATE: CARDIOLOGY CONSULTATION REASON FOR CONSULTATION: Left shoulder pain radiating to left arm. HISTORY OF PRESENT ILLNESS: The patient is a 72-year-old female who has a history of diabetes mellitus and hypertension, who presented because of left shoulder pain radiating to left arm, but denies any retrosternal chest pain. The patient denies any history of heart attack in the past. The patient is chest pain free at this time. The patient does report history of stroke in the past. PAST MEDICAL HISTORY: Hypertension, diabetes mellitus, history of CVA and history of right shoulder surgery. REVIEW OF SYSTEMS: The patient did report dizziness, but no syncope. The patient denies any palpitation. The patient denies any nausea, vomiting, or diarrhea. MEDICATIONS: Lipitor 10 mg once daily, Lyrica 75 mg twice a day, Norvasc 2.5 mg once a day, Pepcid 20 mg twice a day, Plavix 75 mg once a day, Zestril 2.5 mg once a day, and Tenormin 25 mg once a day. PHYSICAL EXAMINATION: GENERAL: The patient is an elderly female, who does not appear to be in acute distress. VITAL SIGNS: Blood pressure 164/74, heart rate 75, temperature 98.1, and respirations 18. HEENT: Normocephalic. NECK: No JVD. CHEST: Clear. HEART: S1 and S2 regular. EXTREMITIES: No edema. LABORATORY DATA: Hemoglobin and hematocrit 10.8 and 34, white count and platelets count are within normal limit. SMA-7 is within normal limit except glucose 158 and creatinine 0.6. Two sets of troponin are negative. EKG revealed normal sinus rhythm at a rate of 63. Echocardiograph study performed in 03/2016 revealed second and possibly bicuspid valve. Mild valvular aortic stenosis. Normal ejection fraction and normal segmental wall motion. The aortic root size was normal. Lexiscan performed in 04/2016 was essentially normal except myocardial perfusion study, fixed apical defect, most likely breast attenuation. Normal gaited wall motion of the left ventricle. ASSESSMENT: 1. Atypical chest pain, myocardial infarction ruled out. 2. Hypertension and diabetes mellitus. 3. Mild anemia. RECOMMENDATIONS: Continue current Lipitor 10 mg once a day, Norvasc 2.5 mg once a day, Plavix 75 mg once a day, atenolol 25 mg once a day, and Zestril 2.5 mg daily. No further cardiac workup is indicated at this time. Hilton Fuentes MD
== END 2017-07-29 17:18 | disposition home or self-care (01) ==
LOC: ED 07:13 → ERH 08:37 → 2RSO 10:05
PROVIDERS: ADMIT Internal Medicine; ATTEND Internal Medicine
DX: R07.89 Other chest pain (principal); R42 Dizziness and giddiness; I69.354 Hemiplegia and hemiparesis following cerebral infarction affecting left non-dominant side; M25.512 Pain in left shoulder; S16.1XXA Strain of muscle, fascia and tendon at neck level, initial encounter; I10 Essential (primary) hypertension; E11.65 Type 2 diabetes mellitus with hyperglycemia; E11.42 Type 2 diabetes mellitus with diabetic polyneuropathy; D64.9 Anemia, unspecified; X58.XXXA Exposure to other specified factors, initial encounter; Z90.710 Acquired absence of both cervix and uterus
CPT/HCPCS: 36415; 70450; 71020; 72040; 73030; 80053; 82550; 82803; 82948; 83615; 83690; 83735; 84484; 85025; 93005; 96360; 96374; 97116; 97162; 99283; G0378; G8978; G8979; G8980; J2270; J7040

== ENCOUNTER 2018-03-30 22:13 | Emergency (ER) | payer MEDICARE, OTHER ==
[2018-03-30 22:39] VITALS: TEMP 97.6; BMI 23.3
--- NOTE | 2018-03-30 22:50 | ED PDOC ---
Arrival/HPI - General Chief Complaint: Lower Extremity Problem/Injury Time Seen by Provider: 03/30/18 22:29 Historian: Patient, Family - History of Present Illness Narrative History of Present Illness (Text): 03/30/18 22:50 Kasey Wellington is a 72 year old female, whose past medical history includes hypertension, diabetes, diabetic neuropathy, and TIA, who presents to ED complaining of pain to plantar aspect of her right foot for the past week. Patient notes she takes Lyrica for diabetic neuropathy and regularly wears compression socks. Patient denies any weakness in the extremities, difficulty ambulating, decreased range of motion, trauma/injury, or any other complaints. Symptom Onset: Gradual Symptom Course: Unchanged Activities at Onset: Light Context: Home Past Medical History - Provider Review Nursing Documentation Reviewed: Yes - Infectious Disease Hx of Infectious Diseases: None - Tetanus Immunization Tetanus Immunization: Unknown - Cardiac Hx Cardiac Disorders: Yes Hx Hypertension: Yes - Pulmonary Hx Respiratory Disorders: No - Neurological Hx Neurological Disorder: Yes HX Cerebrovascular Accident: Yes (LEFT SIDED WEAKNESS 1996) - HEENT Hx HEENT Disorder: (WEARS RX GLASSES.LID LIFT) - Endocrine/Metabolic Hx Endocrine Disorders: Yes Hx Diabetes Mellitus Type 1: Yes - Hematological/Oncological Hx Blood Disorders: No - Musculoskeletal/Rheumatological Hx Musculoskeletal Disorders: Yes Hx Arthritis: Yes - Psychiatric Hx Psychophysiologic Disorder: No Hx Anxiety: No Hx Bipolar Disorder: No Hx Depression: No Hx Emotional Abuse: No Hx Hallucinations: No Hx Panic Disorder: No Hx Post Traumatic Stress Disorder: No Hx Psychosis: No Hx Physical Abuse: No Hx Schizophrenia: No Hx Sexual Abuse: No Hx Substance Use: No - Surgical History Hx Appendectomy: Yes Hx Hysterectomy: Yes Hx Musculoskeletal Surgery: Yes (R shoulder replacement) - Anesthesia Hx Anesthesia: Yes Hx Anesthesia Reactions: No Hx Malignant Hyperthermia: No - Suicidal Assessment Feels Threatened In Home Enviroment: No Family/Social History - Physician Review Nursing Documentation Reviewed: Yes Family/Social History: Unknown Family HX Smoking Status: Never Smoked Hx Alcohol Use: No Hx Substance Use: No Hx Substance Use Treatment: No Allergies/Home Meds Allergies/Adverse Reactions: Allergies No Known Allergies Allergy (Verified 07/28/17 14:38) Home Medications: Home Meds Medication Instructions Recorded Confirmed Clopidogrel [Plavix] 75 mg PO DAILY 12/11/11 07/29/17 Metformin HCl [Glucophage Xr] 1,000 mg PO BID 04/01/16 07/28/17 Alendronate Sodium [Binosto] 70 mg PO QWK 04/28/16 07/28/17 Atorvastatin Calcium 10 mg PO DAILY 04/28/16 07/29/17 Insulin Detemir [Levemir] 40 unit SC DAILY 04/28/16 07/28/17 Linagliptin [Tradjenta] 5 mg PO DAILY 04/28/16 07/28/17 Lisinopril [Zestril] 2.5 mg PO DAILY 04/28/16 07/29/17 Pregabalin [Lyrica] 75 mg PO BID 04/28/16 07/29/17 Review of Systems - Physician Review All systems were reviewed & negative as marked: Yes - Review of Systems Constitutional: Normal. absent: Fevers Eyes: Normal ENT: Normal Respiratory: Normal. absent: SOB, Cough Cardiovascular: Normal. absent: Chest Pain Gastrointestinal: Normal. absent: Abdominal Pain, Diarrhea, Nausea, Vomiting Genitourinary Female: Normal. absent: Dysuria, Frequency, Hematuria, Urine Output Changes Musculoskeletal: Other (+right foot pain). absent: Back Pain, Neck Pain Skin: Normal. absent: Rash Neurological: Normal. absent: Headache, Dizziness Endocrine: Normal Hemo/Lymphatic: Normal Psychiatric: Normal Physical Exam Vital Signs Reviewed: Yes Vital Signs Temp Pulse Resp BP Pulse Ox 03/30/18 22:36 97.6 F 68 16 193/82 H 95 Temperature: Afebrile Blood Pressure: Hypertensive Pulse: Regular Respiratory Rate: Normal Appearance: Positive for: Well-Appearing, Non-Toxic, Comfortable Pain Distress: None Mental Status: Positive for: Alert and Oriented X 3 - Systems Exam Head: Present: Atraumatic, Normocephalic Pupils: Present: PERRL Extroacular Muscles: Present: EOMI Conjunctiva: Present: Normal Mouth: Present: Moist Mucous Membranes Neck: Present: Normal Range of Motion Lower Extremity: Present: NORMAL PULSES, Normal ROM, Tenderness (Minimal tenderness to plantar aspect of right foot), Neurovascularly Intact, Capillary Refill < 2 s. No: Edema, Swelling, Erythema, Deformity, Temperature Abnormalties Neurological: Present: GCS=15, CN II-XII Intact, Speech Normal Skin: Present: Warm, Dry, Normal Color. No: Rashes Psychiatric: Present: Alert, Oriented x 3, Normal Insight, Normal Concentration Medical Decision Making ED Course and Treatment: 03/30/18 22:50 Impression: 72 year old female c/o right foot pain to plantar aspect x1 week. Differential Diagnosis included but are not limited to: plantar fasciitis vs. diabetic neuropathy Plan: -- XR Right Foot -- Motrin -- Reassess and disposition Prior Visits: Notes and results from previous visits were reviewed. Progress Notes: 03/31/18 00:01 XR Right Foot reviewed, shows no acute processes. On re-evaluation, patient feels better and is in no acute distress. I have discussed the results and plan with the patient, who expresses understanding. Patient in agreement with plan to be discharged home. Patient is stable for discharge. Patient was instructed to follow up with physician or return if symptoms worsen or new concerning symptoms arise. - RAD Interpretation Radiology Orders: 03/30/18 22:52 FOOT RIGHT 3 VIEWS ROUTINE [RAD] Stat Web Mobile Designer: ED Physician - Medication Orders Current Medication Orders: Discontinued Medications Ibuprofen (Motrin Tab) 600 mg PO STAT STA Stop: 03/30/18 22:55 Last Admin: 03/30/18 23:15 Dose: 600 mg - Scribe Statement The provider has reviewed the documentation as recorded by the Scribe Kimberly Wild All medical record entries made by the Scribe were at my direction and personally dictated by me. I have reviewed the chart and agree that the record accurately reflects my personal performance of the history, physical exam, medical decision making, and the department course for this patient. I have also personally directed, reviewed, and agree with the discharge instructions and disposition. Disposition/Present on Arrival - Present on Arrival Any Indicators Present on Arrival: No History of DVT/PE: No History of Uncontrolled Diabetes: Yes Urinary Catheter: No History of Decub. Ulcer: No History Surgical Site Infection Following: None - Disposition Have Diagnosis and Disposition been Completed?: Yes Diagnosis: Plantar fasciitis of right foot Disposition: HOME/ ROUTINE Disposition Time: 00:01 Patient Problems: Current Active Problems Problem Status Onset Plantar fasciitis of right foot Acute Condition: STABLE Discharge Instructions (ExitCare): Heel Pain (Caused by Plantar Fasciitis) (DC) Additional Instructions: Avoid prolonged standing on the affected area/use shoes with good arch support/ take meds as prescribed/follow up with your doctor this week Prescriptions: Naproxen [Naprosyn Tab] 375 mg PO BID PRN #12 tab PRN Reason: Pain, Moderate (4-7) Referrals: Darnell Mathis [Primary Care Provider] - Follow up with primary Forms: [employer] (Hungarian)
[2018-03-31 00:12] VITALS: BP 162/80; PULSE 72; RESP 20; O2SAT 99
--- NOTE | 2018-03-31 10:43 | RAD ---
Date of service: 03/30/2018 PROCEDURE: Right Foot Radiographs. HISTORY: pain COMPARISON: None. FINDINGS: BONES: There is diffuse bone demineralization. There is no acute displaced fracture or bone destruction. Bone alignment is normal. JOINTS: Normal. SOFT TISSUES: Normal. OTHER FINDINGS: None. IMPRESSION: No acute fracture or dislocation.
== END 2018-03-31 00:11 | disposition home or self-care (01) ==
LOC: ED 22:13
DX: M72.2 Plantar fascial fibromatosis (principal); I10 Essential (primary) hypertension; E11.40 Type 2 diabetes mellitus with diabetic neuropathy, unspecified; Z86.73 Personal history of transient ischemic attack (TIA), and cerebral infarction without residual deficits

== ENCOUNTER 2018-09-13 08:06 | Emergency (ER) | payer MEDICARE, OTHER ==
[2018-09-13 08:17] VITALS: BMI 22.8
[2018-09-13] MEDS ORDERED: Sodium Chloride 0.9% 500 ML IV STA (08:25)
--- NOTE | 2018-09-13 08:29 | ED PDOC ---
Arrival/HPI - General Chief Complaint: Dizziness/Lightheaded Time Seen by Provider: 09/13/18 08:15 Historian: Patient, Family (Son) - History of Present Illness Narrative History of Present Illness (Text): 09/13/18 08:26 A 73 year old male, whose past medical history includes diabetes, presents to the emergency department with a complaint of weakness and dizziness. Patient is Nauruan speaking, son at bedside translated with her permission. The patient reports taking her normal insulin dosage last night. She reports that she could not sleep and woke up at 1 am feeling weak and dizzy. She states that her sugar was 459 at that time. She states that she took an extra insulin dose. This morning, she called her son, stating that she felt weak and dizzy which prompted him to bring the patient to the emergency department for further evaluation. Patient states that she did not eat or take her insulin this morning. She is a non-smoker/ non-drinker. The patient denies fevers, chills, headache, chest pain, shortness of breath, dyspnea on exertion, cough, abdominal pain, vomiting, diarrhea, back pain, neck pain, urinary/bowel changes, or any other complaint. Time/Duration: Other (Last night) Symptom Onset: Sudden Activities at Onset: Rest, Light Context: Home Past Medical History - Provider Review Nursing Documentation Reviewed: Yes - Infectious Disease Hx of Infectious Diseases: None - Tetanus Immunization Tetanus Immunization: Unknown - Reproductive Menopause: Yes - Cardiac Hx Cardiac Disorders: Yes Hx Hypertension: Yes - Pulmonary Hx Respiratory Disorders: No - Neurological Hx Neurological Disorder: Yes HX Cerebrovascular Accident: Yes (LEFT SIDED WEAKNESS 1996) - HEENT Hx HEENT Disorder: (WEARS RX GLASSES.LID LIFT) - Endocrine/Metabolic Hx Endocrine Disorders: Yes Hx Diabetes Mellitus Type 1: Yes - Hematological/Oncological Hx Blood Disorders: No - Musculoskeletal/Rheumatological Hx Musculoskeletal Disorders: Yes Hx Arthritis: Yes - Psychiatric Hx Psychophysiologic Disorder: No Hx Substance Use: No - Surgical History Hx Appendectomy: Yes Hx Hysterectomy: Yes Hx Musculoskeletal Surgery: Yes (R shoulder replacement) - Anesthesia Hx Anesthesia: Yes Hx Anesthesia Reactions: No Hx Malignant Hyperthermia: No - Suicidal Assessment Feels Threatened In Home Enviroment: No Family/Social History - Physician Review Nursing Documentation Reviewed: Yes Family/Social History: No Known Family HX Smoking Status: Never Smoked Hx Alcohol Use: No Hx Substance Use: No Hx Substance Use Treatment: No Allergies/Home Meds Allergies/Adverse Reactions: Allergies No Known Allergies Allergy (Verified 07/28/17 14:38) Home Medications: Home Meds Medication Instructions Recorded Confirmed RX: Clopidogrel [Plavix] 75 mg PO DAILY 12/11/11 07/29/17 RX: Metformin HCl [Glucophage Xr] 1,000 mg PO BID 04/01/16 07/28/17 RX: Alendronate Sodium [Binosto] 70 mg PO QWK 04/28/16 07/28/17 RX: Atorvastatin Calcium 10 mg PO DAILY 04/28/16 07/29/17 RX: Insulin Detemir [Levemir] 40 unit SC DAILY 04/28/16 07/28/17 RX: Linagliptin [Tradjenta] 5 mg PO DAILY 04/28/16 07/28/17 RX: Lisinopril [Zestril] 2.5 mg PO DAILY 04/28/16 07/29/17 RX: Pregabalin [Lyrica] 75 mg PO BID 04/28/16 07/29/17 Review of Systems - Physician Review All systems were reviewed & negative as marked: Yes - Review of Systems Constitutional: absent: Fevers Respiratory: absent: SOB, Cough Cardiovascular: absent: Chest Pain, ARNETT Gastrointestinal: absent: Abdominal Pain, Stool Changes, Diarrhea, Vomiting Genitourinary Female: absent: Urine Output Changes Musculoskeletal: absent: Back Pain, Neck Pain Neurological: Dizziness, Other (Weakness). absent: Headache, Focal Weakness Physical Exam Vital Signs Reviewed: Yes Vital Signs Temp Pulse Resp BP Pulse Ox 09/13/18 08:06 97.8 F 79 20 120/73 99 Temperature: Afebrile Blood Pressure: Normal Pulse: Regular Respiratory Rate: Normal Appearance: Positive for: Well-Appearing, Non-Toxic, Comfortable Pain Distress: None Mental Status: Positive for: other (awake and alert) - Systems Exam Head: Present: Atraumatic, Normocephalic Pupils: Present: PERRL Extroacular Muscles: Present: EOMI Conjunctiva: Present: Normal Mouth: Present: Moist Mucous Membranes Pharnyx: No: ERYTHEMA, EXUDATE, TONSILS ENLARGED Neck: Present: Normal Range of Motion Respiratory/Chest: Present: Clear to Auscultation, Good Air Exchange. No: Respiratory Distress, Accessory Muscle Use Cardiovascular: Present: Regular Rate and Rhythm, Normal S1, S2. No: Murmurs Abdomen: Present: Normal Bowel Sounds. No: Tenderness, Distention, Peritoneal Signs, Rebound, Guarding Back: Present: Normal Inspection Upper Extremity: Present: Normal Inspection. No: Cyanosis, Edema Lower Extremity: Present: Normal Inspection. No: Edema Neurological: Present: GCS=15, CN II-XII Intact, Speech Normal, Motor Func Grossly Intact Skin: Present: Warm, Dry, Normal Color. No: Rashes Psychiatric: Present: Alert, Normal Concentration Medical Decision Making ED Course and Treatment: 09/13/18 08:30 Impression: A 73 year old female is brought into the emergency department by her son for complaints of dizziness and weakness. Plan: -- Head CT -- EKG -- Chest X-ray -- IV Fluids -- Reassess and disposition Prior Visits: Notes and results from previous visits were reviewed. Progress Notes: 09/13/18 08:58 EKG shows normal sinus rhythm rate approximately [address] or T-wave changes. PROCEDURE: CT HEAD WITHOUT CONTRAST. Dictator : Augustnie Mar MD Report Date : 09/13/2018 09:10:55 IMPRESSION: No acute intracranial findings Chest X-ray Dictator : Augustine Mar MD Report Date : 09/13/2018 10:09:24 IMPRESSION: No active disease. 09/13/18 10:19 Workup is unremarkable including CT scan. Discharge home accompanied by son to follow-up with PMD. Take your insulin as prescribed and eat your meals as prescribed. - Lab Interpretations I have reviewed the lab results: Yes - EKG Interpretation Interpreted by ED Physician: Yes Type: 12 lead EKG - Scribe Statement The provider has reviewed the documentation as recorded by the Scribe Eri Grant Provider Scribe Attestation: All medical record entries made by the Scribe were at my direction and personally dictated by me. I have reviewed the chart and agree that the record accurately reflects my personal performance of the history, physical exam, medical decision making, and the department course for this patient. I have also personally directed, reviewed, and agree with the discharge instructions and disposition. Disposition/Present on Arrival - Present on Arrival Any Indicators Present on Arrival: No History of DVT/PE: No History of Uncontrolled Diabetes: Yes Urinary Catheter: No History of Decub. Ulcer: No History Surgical Site Infection Following: None - Disposition Have Diagnosis and Disposition been Completed?: Yes Diagnosis: Dizziness, Acute hyperglycemia, Weakness Disposition: HOME/ ROUTINE Disposition Time: 10:19 Patient Plan: Discharge Condition: GOOD Discharge Instructions (ExitCare): Hyperglycemia, Adult, Fatigue, Generalized Weakness (DC), Dizziness, Nonvertigo, (DC), Weakness (ED) Referrals: Yu Schmidt DO [Primary Care Provider] - Follow up with primary Forms: [employer] (Azerbaijani)
[2018-09-13 08:45] LABS: BASO # 0.01 K/mm3 (0.0-2.0); BASO % 0.1 % (0.0-3.0); EOS % 0.1 % (1.5-5.0); HEMOGLOBIN 13.1 g/dL (12.0-16.0); LYMPH # 1.6 (1.2-3.4); LYMPH % 23.5 % (22.0-35.0); MEAN CORPUSCULAR HEMOGLOBIN 25.3 pg (25.0-35.0); MEAN CORPUSCULAR HGB CONC 32.9 g/dl (31.0-37.0); MEAN PLATELET VOLUME 11.1 fl (7.0-11.0); MONO # 0.4 (0.1-0.6); MONO % 5.4 % (1.0-6.0); RBC 5.17 10^6/uL (3.5-6.1); RED CELL DISTRIBUTION WIDTH 13.7 % (11.5-14.5); WHITE BLOOD COUNT 6.7 10^3/uL (4.5-11.0)
[2018-09-13 08:57] LABS: INR 1.04; PROTHROMBIN TIME 11.8 SECONDS (9.4-12.5)
[2018-09-13 09:04] LABS: ALB/GLOB RATIO 1.3 (1.1-1.8); ALBUMIN 4.3 g/dL (3.0-4.8); ALT/SGPT 6 U/L (7-56); AST/SGOT 27 U/L (14-36); BLOOD UREA NITROGEN 16 mg/dL (7-21); CALCIUM 9.5 mg/dL (8.4-10.5); GFR NON-AFRICAN AMERICAN > 60
--- NOTE | 2018-09-13 09:14 | CT ---
Date of service: 09/13/2018 PROCEDURE: CT HEAD WITHOUT CONTRAST. HISTORY: weak COMPARISON: 07/28/2017 TECHNIQUE: Axial computed tomography images were obtained through the head/brain without intravenous contrast. Radiation dose: Total exam DLP = 864.2 mGy-cm. This CT exam was performed using one or more of the following dose reduction techniques: Automated exposure control, adjustment of the mA and/or kV according to patient size, and/or use of iterative reconstruction technique. FINDINGS: HEMORRHAGE: No intracranial hemorrhage. BRAIN: No mass effect or edema. No atrophy or chronic microvascular ischemic changes. VENTRICLES: Unremarkable. No hydrocephalus. CALVARIUM: Unremarkable. PARANASAL SINUSES: Unremarkable as visualized. No significant inflammatory changes. MASTOID AIR CELLS: Unremarkable as visualized. No inflammatory changes. OTHER FINDINGS: None. IMPRESSION: No acute intracranial findings
[2018-09-13 09:15] LABS: TROPONIN I 0.02 ng/mL
[2018-09-13 09:46] LABS: PH,URINE 7.5 (4.7-8.0); URINE BILIRUBIN NEGATIVE (NEGATIVE); URINE BLOOD NEGATIVE (NEGATIVE); URINE GLUCOSE (UA) >=1000 mg/dL (NEGATIVE); URINE LEUKOCYTE ESTERASE TRACE Leu/uL (NEGATIVE); URINE PROTEIN NEGATIVE mg/dL (<30 mg/dL); URINE UROBILINOGEN 0.2 E.U./dL (<1 E.U./dL)
[2018-09-13 09:50] LABS: URINE APPEARANCE CLEAR (CLEAR); URINE COLOR YELLOW (YELLOW)
[2018-09-13 10:06] LABS: URINE WBC 0 - 2 /hpf (0-6)
--- NOTE | 2018-09-13 10:13 | RAD ---
Date of service: 09/13/2018 HISTORY: weak COMPARISON: 07/28/2017 FINDINGS: LUNGS: No active pulmonary disease. PLEURA: No significant pleural effusion identified, no pneumothorax apparent. CARDIOVASCULAR: No aortic atherosclerotic calcification present. Normal cardiac size. No pulmonary vascular congestion. OSSEOUS STRUCTURES: No significant abnormalities. VISUALIZED UPPER ABDOMEN: Normal. OTHER FINDINGS: None. IMPRESSION: No active disease.
[2018-09-13 10:37] VITALS: BP 121/69; PULSE 79; RESP 19; TEMP 98; O2SAT 96
--- NOTE | 2018-09-13 17:43 | CARD ---
APPROVED REPORT Date of service: 09/13/2018 EKG Measurement Heart [id number] IN 130P51 [id number] <Conclusion> Normal sinus rhythm Normal ECG
== END 2018-09-13 10:35 | disposition home or self-care (01) ==
LOC: ED 08:06
DX: R42 Dizziness and giddiness (principal); R53.1 Weakness; E10.65 Type 1 diabetes mellitus with hyperglycemia; Z79.4 Long term (current) use of insulin; I10 Essential (primary) hypertension; Z86.73 Personal history of transient ischemic attack (TIA), and cerebral infarction without residual deficits
CPT/HCPCS: 70450; 71045; 80053; 81001; 82550; 82948; 83615; 83735; 84484; 85025; 85610; 85730; 87086; 93005; 99285; J7040